=== PATIENT | female | born 1980 | race Caucasian/White ===

== ENCOUNTER → 2019-05-31 | Outpatient (CLI) | payer BC ==
[2019-05-31 11:58] LABS: ALBUMIN 4.3 g/dL (3.5-5.0); POTASSIUM 4.4 mmol/L (3.5-5.1)
[2019-05-31 11:59] LABS: CALCIUM 9.2 mg/dL (8.3-10.5)
[2019-05-31 12:00] LABS: TOTAL PROTEIN 7.3 g/dL (6.4-8.3)
[2019-05-31 12:02] LABS: TOTAL BILIRUBIN 0.8 mg/dL (0.2-1.2)
[2019-05-31 12:34] LABS: EOS # 0.2 (0.04-0.40); EOS % 4.9 % (1.0-5.0); HEMATOCRIT 42.7 % (37.0-47.0); HEMOGLOBIN 13.9 g/dL (12.5-16.0); LYMPH# 1.5 (1.50-4.00); MEAN CELL VOLUME 93 fl (78-100); MEAN CORPUSCULAR HEMOGLOBIN 30 pg (27-31); MEAN CORPUSCULAR HGB CONC 33 g/dL (33-37); MEAN PLATELET VOLUME 10.1 fl (7.4-10.4); MONO # 0.4 (0.20-0.80); NEU # 2.4 (1.40-6.50); PLATELET COUNT 315 K/mm3 (130-400); RED BLOOD COUNT 4.58 M/mm3 (4.10-5.30); RED CELL DISTRIBUTION WIDTH 13.2 % (11.5-14.5); WHITE BLOOD COUNT 4.5 K/mm3 (4.8-10.8)
[2019-06-01 14:57] LABS: ANA SCREEN with REFLEX Negative (Negative)
== END ==
LOC: LAB 11:26
PROVIDERS: Family Medicine
DX: Z00.00 Encounter for general adult medical examination without abnormal findings (principal); E78.5 Hyperlipidemia, unspecified; R53.83 Other fatigue

== ENCOUNTER → 2019-12-31 | Outpatient (CLI) | payer OTHER | LOC: RAD 12-30 12:56 → LAB 12:00 → RAD 12:00 | DX: Z20.828 Contact with and (suspected) exposure to other viral communicable diseases (principal) ==

== ENCOUNTER → 2020-01-20 | Outpatient (CLI) | payer BC ==
[2020-01-20 10:47] LABS: POTASSIUM 3.7 mmol/L (3.5-5.1)
[2020-01-20 10:48] LABS: CALCIUM 8.5 mg/dL (8.3-10.5)
[2020-01-20 10:49] LABS: TOTAL PROTEIN 7.2 g/dL (6.4-8.3)
[2020-01-20 10:51] LABS: TOTAL BILIRUBIN 0.8 mg/dL (0.2-1.2)
[2020-01-20 11:48] LABS: ALBUMIN 4.1 g/dL (3.5-5.0)
[2020-01-21 04:31] LABS: FOLLICLE STIMULATING HORMONE 8.5 mIU/mL (()); LUTENIZING HORMONE 18.8 mIU/mL (()); PROGESTERONE <0.5 ng/mL (())
== END ==
LOC: LAB 10:18
PROVIDERS: Family Medicine
DX: Z00.00 Encounter for general adult medical examination without abnormal findings (principal); E78.5 Hyperlipidemia, unspecified; R23.2 Flushing; R73.9 Hyperglycemia, unspecified; Z83.2 Family history of diseases of the blood and blood-forming organs and certain disorders involving the immune mechanism

== ENCOUNTER → 2020-01-28 | Outpatient (CLI) | payer BC | LOC: LAB 07:03 | DX: Z83.2 Family history of diseases of the blood and blood-forming organs and certain disorders involving the immune mechanism (principal) ==

== ENCOUNTER 2020-09-21 12:51 | Outpatient (RCR) | payer BC | END 2020-10-26 17:00 | disposition home or self-care (01) | LOC: PT 12:51 | DX: M46.1 Sacroiliitis, not elsewhere classified (principal) ==

== ENCOUNTER → 2021-03-05 | Outpatient (CLI) | payer OTHER | LOC: LAB 08:14 | DX: Z20.822 Contact with and (suspected) exposure to COVID-19 (principal) ==